=== PATIENT | female | born 1985 | race Caucasian/White ===

== ENCOUNTER 2022-01-05 07:29 | Emergency (ER) | payer MEDICAID, SELFPAY ==
--- NOTE | ~2022-01-05 | XR_ITS ---
EXAMINATION: XR CHEST CLINICAL INFORMATION: Headache, fever for a couple of days. COMPARISON: None TECHNIQUE: AP view of the chest was obtained. FINDINGS: No significant abnormality is noted involving the heart, lungs, mediastinum, bony thorax or soft tissues. XR/XR chest 1V IMPRESSION: Unremarkable examination.
[2022-01-05 07:40] VITALS: BP 105/56; PULSE 62; RESP 17; TEMP 37.1; O2SAT 99; BMI 21.6
[2022-01-05 07:56] LABS: MANUAL DIFF FLAG NO
[2022-01-05 07:58] LABS: Basophils Percent Auto 0.3 % (0-2); Eosinophils Percent Auto 0.6 % (0-4); Hematocrit 35.8 % (37.0-47.0); Hemoglobin 11.9 g/dl (12.0-16.0); Imm Gran Abs Auto 0.01 X10*3/uL (0.00-0.03); Imm Gran Pct Auto 0.3 % (0.0-0.4); Lymphocytes Absolute Auto 0.7 X10*3/uL (1.2-4.9); Mean Corpuscular HGB Conc 33.2 g/dl (31.0-35.0); Mean Corpuscular Hemoglobin 29.9 pg (27.0-33.0); Mean Corpuscular Volume 89.9 fL (80.0-98.0); Mean Platelet Volume 10.4 fL (9.4-12.3); Monocytes Absolute Auto 0.3 X10*3/uL (0.1-1.2); Monocytes Percent Auto 8.3 % (2-11); Neutrophils Absolute Auto 2.2 x10*3/uL (2.0-8.3); Neutrophils Percent Auto 68.5 % (45-73); Platelet Count 145 X10*3/uL (160-400); Red Blood Count 3.98 X10*6/uL (4.20-5.50); Red Cell Distribution Width 11.7 % (11.0-16.0); White Blood Count 3.3 X10*3/uL (4.8-10.8)
[2022-01-05 08:13] LABS: Lactic Acid 0.7 mmol/L (0.5-2.0)
[2022-01-05 08:14] LABS: COVID-19 Test Negative (Negative); IDNOW Serial# 16C4AD1C
[2022-01-05 08:17] LABS: Influenza A Negative (Negative); Influenza B2 Negative (Negative)
[2022-01-05 08:19] LABS: Alanine Aminotransferase 40 U/L (0-31); Albumin Level 4.3 g/dL (3.5-5.0); Alkaline Phosphatase 91 U/L (39-117); Anion Gap 11 (12-20); Aspartate Amino Transferase 60 U/L (5-31); Bilirubin Total 0.2 mg/dL (0.0-1.0); Blood Urea Nitrogen 9 mg/dL (9-16); Carbon Dioxide 27 mmol/L (22-29); Chloride 101 mmol/L (96-108); Creatinine Clr Calc Pharmacy 74.3; Estimated Glomerular Filt Rate > 60; Glucose Random 101 mg/dL (60-115); Potassium 4.2 mmol/L (3.3-5.1); Sodium 135 mmol/L (135-145); Total Protein 6.9 g/dL (6.5-8.0)
--- NOTE | 2022-01-05 08:34 | ED_ITS ---
HPI - General Adult General Chief complaint: General Medical Stated complaint: fever,headache Time Seen by Provider: 01/05/22 08:20 Source: patient Mode of arrival: ambulatory Limitations: no limitations History of Present Illness HPI narrative: Patient presents to the emergency department for evaluation of headache x2 days. She reports 2 days ago noting to have a fever of 101, severe diffuse headache that is not responding to therapy fluid, ibuprofen, or Tylenol. She had 1 episode of vomiting yesterday, and she continues to have nausea. She has a nonproductive but congested cough. Reports that her significant other is sick with similar symptoms but less severe. Denies shaking chills, nasal congestion, sore throat, chest pain, palpitations, shortness of breath, difficulty breathing, abdominal pain dysuria, urinary frequency/ urgency/ hesitancy, possibility of as she had a hysterectomy, pedal edema, lower extremity swelling or pain, generalized weakness. Related Data Previous Rx's Medication Instructions Recorded doxycycline hyclate 100 mg capsule 100 mg PO BID 10 Days #20 cap 01/05/22 ibuprofen 600 mg tablet 600 mg PO Q8H PRN #20 tab 01/05/22 ondansetron 4 mg disintegrating 4 mg PO Q8H PRN 3 Days #9 tab 01/05/22 tablet Allergies Allergy/AdvReac Type Severity Reaction Status Date / Time No Known Allergies Allergy Verified 01/05/22 07:43 Review of Systems Review of Systems: Constitutional: No weight loss. positive fever. positive chills. No weakness. No fatigue. Eye: No swelling. No redness. ENT: No sore throat. No rhinorrhea. No nasal congestion. No sore throat. No difficulty swallowing. Skin: No rash. No itching. Cardiovascular: No chest pain. No chest pressure. No palpitations. No pedal edema. Respiratory: No shortness of breath. positive cough. No sputum production. Gastrointestinal: positive nausea. positive vomiting. No diarrhea. No abdominal pain. No blood in stool. Genitourinary: No burning micturition. No urinary frequency. No incontinence. Neurologic: positive headache. No dizziness. No pre-syncope/ syncope. No unilateral weakness. No ataxia. No numbness. No tingling. No change in bowel or bladder control. Musculoskeletal: No muscle pain. No back pain. No joint pain. No stiffness. Hematologic: No bleeding. No bruising. Lymphatics: No enlarged lymph nodes. Psychiatric:No depression. No anxiety. Endocrine: No reports of sweating. No cold or heat intolerance. No polyuria. No polydipsia. Yes all other systems are reviewed and are negative [facility] Past Medical History Attestation statement: The following information was validated with the patient. Source: old records reviewed Social History Social History Advance Directives: No Advance Directives Information Provided: No Physical Exam ED Vital Signs: Vital Signs - 24 hr 01/05/22 07:40 01/05/22 10:10 01/05/22 10:38 Temperature 98.8 F 99.3 F Pulse Rate 62 48 L 56 Respiratory Rate 17 18 Blood Pressure 105/56 L 84/43 L 98/62 Pulse Oximetry 99 99 BMI result Body Mass Index 21.6 Vital signs have been reviewed as normal and appeared to be correct. Blood pre ssure normal.? Heart rate normal.? Respiration rate normal. Temperature normal.? Oxygen saturation normal. Appearance: Alert.?Oriented to person, place and time. No acute distress.?Normal affect. Eyes: Pupils equal, round and reactive to light.? ENT: Pharynx normal.?? Neck: Normal inspection.? Neck supple.?? CVS: Heart sounds normal. Normal heart rate and rhythm.? Pulses normal.?? Respiratory: No respiratory distress.? Lung sounds clear to auscultation bilaterally?? Abdomen: Soft and non-tender. Normoactive bowel sounds. ? Skin: Skin warm and dry.? Normal skin color.? Extremities: No lower extremity edema.? No calf ttp? Neuro: Moves all extremities spontaneously. Sensation intact bilaterally. CN II- XII intact. No focal neuro deficits. Ambulates with normal steady gait. Course Course Course Narrative: patient is a 36-year-old female with a past medical history of seizures. Presenting to the emergency department with viral-like symptoms including fever headache and nausea vomiting for a few days. abdominal exam is benign. No neurological deficits. No meningismus. Symptoms at this time seem most consistent with a viral syndrome. Will obtain CBC, CMP, COVID- 19 and influenza testing. denies any possibility of as she has had a prior hysterectomy, will obtain urinalysis Reevaluation(s) Reevaluation #1: CBC reveals pancytopenia. CMP overall unremarkable but slightly elevated AST/ALT 60/40 respectively. Lactic acid 0.7. COVID- 19 and influenza testing were negative. Urinalysis without sign of infection. Chest x-ray unremarkable. Patient overall reports feeling better after receiving Toradol IV, Zofran, Benadryl IV, and 1 L normal saline fluids. Concern at this time for pancytopenia and mild elevated transaminases, patient denies any known recent tick bite or exposure, however she does report that she spends a lot of time outside. On exam no notable rash, or bull's eye lesion. I discussed findings with patient, will obtain tick panel as there is concern for possible Anaplasma assess. Discussed prophylactic treatment with doxycycline 100 mg twice daily for 10 days, and patient is agreeable with this plan of care, will additionally send a prescription for Zofran as needed for nausea, and ibuprofen for fever/ headache, discussed reasons that she should return back to the emergency department, patient buys to follow-up with her primary care provider within 1 week, advised to contacted from the ER staff should her sural panel result as positive. All questions were answered, and patient was discharged stable condition. Time: 10:30 Medical Decision Making Medical Records Medical records reviewed: Yes I reviewed the patient's medical records. Lab Data Lab results reviewed: Yes I reviewed the patient's lab results. Result diagrams: 01/05/22 07:50 01/05/22 07:50 Labs: Lab Results 01/05/22 01/05/22 01/05/22 Range/Units 07:50 07:50 07:50 WBC 3.3 L (4.8-10.8) X10*3/uL RBC 3.98 L (4.20-5.50) X10*6/uL Hgb 11.9 L (12.0-16.0) g/dl Hct 35.8 L (37.0-47.0) % MCV 89.9 (80.0-98.0) fL MCH 29.9 (27.0-33.0) pg MCHC 33.2 (31.0-35.0) g/dl RDW 11.7 (11.0-16.0) % Plt Count 145 L (160-400) X10*3/uL MPV 10.4 (9.4-12.3) fL Immature Gran % (Auto) 0.3 (0.0-0.4) % Neut % (Auto) 68.5 (45-73) % Lymph % (Auto) 22.0 (20-40) % [place] % (Auto) 8.3 (2-11) % Eos % (Auto) 0.6 (0-4) % Baso % (Auto) 0.3 (0-2) % Lymph # (Auto) 0.7 L (1.2-4.9) X10*3/uL [place] # (Auto) 0.3 (0.1-1.2) X10*3/uL Eos # (Auto) 0.0 (0.0-0.4) X10*3/uL Baso # (Auto) 0.0 (0.0-0.2) X10*3/uL Abs Immat Gran (auto) 0.01 (0.00-0.03) X10*3/uL Absolute Neuts (auto) 2.2 (2.0-8.3) x10*3/uL Absolute Nucleated RBC 0.000 (0.0-0.012) X10*3/uL Nucleated RBC % (auto) 0.0 (0.0-0.2) /100WBC Sodium 135 (135-145) mmol/L Potassium 4.2 (3.3-5.1) mmol/L Chloride 101 (96-108) mmol/L Carbon Dioxide 27 (22-29) mmol/L Anion Gap 11 L (12-20) BUN 9 (9-16) mg/dL Creatinine 0.96 (0.5-1.4) mg/dL Estim Creat Clear Calc 74.3 Estimated GFR > 60 Random Glucose 101 (60-115) mg/dL Lactic Acid 0.7 (0.5-2.0) mmol/L Calcium 9.0 (8.4-10.2) mg/dL Total Bilirubin 0.2 (0.0-1.0) mg/dL AST 60 H (5-31) U/L ALT 40 H (0-31) U/L Alkaline Phosphatase 91 (39-117) U/L Total Protein 6.9 (6.5-8.0) g/dL Albumin 4.3 (3.5-5.0) g/dL Urine Color Urine Appearance Urine pH (5.0-8.0) Ur Specific [place] (1.005-1.025) Urine Protein (NEG-TRACE) MG/DL Urine Glucose (UA) (NEG) MG/DL Urine Ketones (NEG) MG/DL Urine Blood (NEG) Urine Nitrite (NEG) Ur Leukocyte Esterase (NEG) COVID-19 ([facility]) (Negative) COVID-19 Clin Com Influenza Type A (ROB) (Negative) Influenza Type B (ROB) (Negative) Influenza A & B Note 01/05/22 01/05/22 01/05/22 Range/Units 07:50 07:50 09:11 WBC (4.8-10.8) X10*3/uL RBC (4.20-5.50) X10*6/uL Hgb (12.0-16.0) g/dl Hct (37.0-47.0) % MCV (80.0-98.0) fL MCH (27.0-33.0) pg MCHC (31.0-35.0) g/dl RDW (11.0-16.0) % Plt Count (160-400) X10*3/uL MPV (9.4-12.3) fL Immature Gran % (Auto) (0.0-0.4) % Neut % (Auto) (45-73) % Lymph % (Auto) (20-40) % [place] % (Auto) (2-11) % Eos % (Auto) (0-4) % Baso % (Auto) (0-2) % Lymph # (Auto) (1.2-4.9) X10*3/uL [place] # (Auto) (0.1-1.2) X10*3/uL Eos # (Auto) (0.0-0.4) X10*3/uL Baso # (Auto) (0.0-0.2) X10*3/uL Abs Immat Gran (auto) (0.00-0.03) X10*3/uL Absolute Neuts (auto) (2.0-8.3) x10*3/uL Absolute Nucleated RBC (0.0-0.012) X10*3/uL Nucleated RBC % (auto) (0.0-0.2) /100WBC Sodium (135-145) mmol/L Potassium (3.3-5.1) mmol/L Chloride (96-108) mmol/L Carbon Dioxide (22-29) mmol/L Anion Gap (12-20) BUN (9-16) mg/dL Creatinine (0.5-1.4) mg/dL Estim Creat Clear Calc Estimated GFR Random Glucose (60-115) mg/dL Lactic Acid (0.5-2.0) mmol/L Calcium (8.4-10.2) mg/dL Total Bilirubin (0.0-1.0) mg/dL AST (5-31) U/L ALT (0-31) U/L Alkaline Phosphatase (39-117) U/L Total Protein (6.5-8.0) g/dL Albumin (3.5-5.0) g/dL Urine Color STRAW Urine Appearance CLEAR Urine pH 6.0 (5.0-8.0) Ur Specific [place] <= 1.005 (1.005-1.025) Urine Protein NEG (NEG-TRACE) MG/DL Urine Glucose (UA) NEG (NEG) MG/DL Urine Ketones NEG (NEG) MG/DL Urine Blood NEG (NEG) Urine Nitrite NEG (NEG) Ur Leukocyte Esterase NEG (NEG) COVID-19 ([facility]) Negative (Negative) COVID-19 Clin Com See Note Influenza Type A (ROB) Negative (Negative) Influenza Type B (ROB) Negative (Negative) Influenza A & B Note See Note Imaging Data Chest x-ray: Radiologist's impression: FINDINGS: No significant abnormality is noted involving the heart, lungs, mediastinum, bony thorax or soft tissues. XR/XR chest 1V IMPRESSION: Unremarkable examination. ? Discharge Plan Discharge Clinical Impression: Headache, Nausea & vomiting Patient Disposition: Home, Self-Care Instructions: Acute Headache (ED), Acute Nausea and Vomiting (ED) Additional Instructions: As we discussed your blood work shows that you have slightly low blood counts, pancytopenia, and slightly elevated liver function tests. Given your exposures outdoors, I am concerned about a possible tick-borne illness, Anaplasmosis. A lab test was sent to check for tick-borne disease, results should be available in a few days. In the meantime, you have been given a new prescription for doxycycline to take twice daily for 10 days, please complete this entire course. You may use ibuprofen every 8 hours as needed for headache/ fever. Zofran as needed for nausea/vomiting. Please follow-up with the primary care provider within 1 week. Return to the emergency department with any new or worsening symptoms or concerns. Prescriptions: New doxycycline hyclate 100 mg capsule 100 mg PO BID 10 Days Qty: 20 0RF ibuprofen 600 mg tablet 600 mg PO Q8H PRN (Reason: fever or pain) Qty: 20 0RF ondansetron 4 mg tablet,disintegrating 4 mg PO Q8H PRN (Reason: nausea and vomiting) 3 Days Qty: 9 0RF Stand Alone Forms: Work/School Release Interventions: ED Discharge Assessment Last Done: 01/05/22 11:05 Discharge Date/Time: 01/05/22 11:13
[2022-01-05] MEDS: 0.9 % Sodium Chloride 1,000 ML 999 ML IV (09:18)
[2022-01-05] MEDS: Ketorolac Tromethamine 30 MG/ML VIAL IVPUSH (09:18)
[2022-01-05 09:22] LABS: Appearance Urine CLEAR; Color Urine STRAW; Glucose Urine UA NEG (NEG); Leukocyte Esterase Urine NEG (NEG); Nitrite Urine NEG (NEG); Specific Gravity - Urine <= 1.005 (1.005-1.025); Urine Blood NEG (NEG); Urine Ketones NEG (NEG); Urine Protein NEG (NEG-TRACE)
[2022-01-05] MEDS: ondansetron HCL 4 MG/2 ML VIAL IVPUSH (09:51)
[2022-01-05 10:10] VITALS: BP 84/43; PULSE 48; RESP 18; TEMP 37.4; O2SAT 99
[2022-01-05 10:38] VITALS: BP 98/62; PULSE 56
[2022-01-07 18:47] LABS: A. Phagocytphilium DNA,RT-PCR NOT DETECTED (NOT DETECTED); Babesia Microti DNA, RT-PCR NOT DETECTED (NOT DETECTED); Borrelia Miyamotoi,DNA RT-PCR NOT DETECTED (NOT DETECTED); E.Chaffeensis DNA RT-PCR NOT DETECTED (NOT DETECTED); Lyme(Borrelia ssp)DNA RT-PCR NOT DETECTED (NOT DETECTED); Source-Tick borne disease NOT GIVEN
== END 2022-01-05 11:13 | disposition home or self-care (01) ==
PROVIDERS: Nurse Practitioner Family; Emergency Provider Emergency Medicine Emergency Medical Services
DX: R51.9 Headache, unspecified (principal); R50.9 Fever, unspecified; Z79.899 Other long term (current) drug therapy; Z20.822 Contact with and (suspected) exposure to COVID-19
CPT/HCPCS: 36415; 71045; 80053; 81003; 83605; 85025; 87040; 87502; 87635; 87798; 87801; 96361; 96374; 96375; 99284; J1885; J2405